=== PATIENT | female | born 1940 | race Caucasian/White ===

== ENCOUNTER 2016-12-08 13:30 | Emergency (ER) | payer MEDICARE ==
[2016-12-08 13:43] VITALS: BP 124/72
--- NOTE | 2016-12-08 14:28 | UC ---
Skin Complaint HPI - HPI Summary HPI Summary: 2 days ago pt's daughter noticed a lump on pts upper back. No pain, itching, or other discomfort. No previous injuries or procedures in that area. - History of Current Complaint Chief Complaint: UCSkin Time Seen by Provider: 12/08/16 14:11 Stated Complaint: LUMP ON BACK Hx Obtained From: Patient ?: No Onset/Duration: Gradual Onset Timing: Constant Current Severity: Mild Location: Discrete Character: Raised Aggravating: Nothing Alleviating: Nothing Associated Signs & Symptoms: Negative: Fever, Chills, Cough, Rash, Drainage, Bruising, Tenderness, Red Streaks - Allergy/Home Medications Allergies/Adverse Reactions: Allergies Allergy/AdvReac Type Severity Reaction Status Date / Time No Known Allergies Allergy Verified 12/08/16 13:44 Home Medications: Home Medications Apixaban* [Eliquis*] 12/08/16 [History] Atorvastatin* [Lipitor 10 MG*] 12/08/16 [History Confirmed 12/08/16] Metoprolol Succinate [Toprol Xl] 12/08/16 [History] Review of Systems Constitutional: Negative Skin: Other - lump on back Eyes: Negative ENT: Negative Respiratory: Negative Cardiovascular: Negative Gastrointestinal: Negative Genitourinary: Negative Motor: Negative Neurovascular: Negative Musculoskeletal: Negative Neurological: Negative Psychological: Negative All Other Systems Reviewed And Are Negative: Yes PMH/Surg Hx/FS Hx/Imm Hx - Surgical History Surgical History: None - Family History Known Family History: Negative: Blood Disorder - Social History Occupation: Retired Lives: With Family Alcohol Use: Occasionally Substance Use Type: None Smoking Status (MU): Never Smoked Tobacco Physical Exam Triage Information Reviewed: Yes Appearance: Well-Appearing, No Pain Distress, Well-Nourished Vital Signs: Initial Vital Signs Temp 98.2 F 12/08/16 13:40 Pulse 62 12/08/16 13:40 Resp 12 12/08/16 13:40 BP 124/72 12/08/16 13:40 Pulse Ox 99 12/08/16 13:40 Vital Signs Reviewed: Yes Eye Exam: Normal Eyes: Positive: Conjunctiva Clear ENT Exam: Normal ENT: Positive: Normal ENT inspection, Hearing grossly normal, Pharynx normal, TMs normal Dental Exam: Normal Neck exam: Normal Neck: Positive: Supple, Nontender, No Lymphadenopathy Respiratory Exam: Normal Respiratory: Positive: Chest non-tender, Lungs clear, Normal breath sounds, No respiratory distress, No accessory muscle use Cardiovascular Exam: Normal Cardiovascular: Positive: RRR, No Murmur Musculoskeletal Exam: Normal Musculoskeletal: Positive: Strength Intact, ROM Intact Neurological Exam: Normal Neurological: Positive: Alert Psychological Exam: Normal Skin Exam: Other - 3-4cm round soft, fixed lump on upper back. No erythema or drainage noted. Course/Dx - Diagnoses Provider Diagnoses: lipoma on back Discharge - Discharge Plan Condition: Stable Disposition: HOME Patient Education Materials: Lipoma (ED) Referrals: Scar Esposito MD [Primary Care Provider] -
== END 2016-12-08 14:26 | disposition home or self-care (01) ==
LOC: UCEAST 13:30
DX: D17.1 Benign lipomatous neoplasm of skin and subcutaneous tissue of trunk (principal)
CPT/HCPCS: 99211; G0463

== ENCOUNTER 2017-01-28 14:08 | Emergency (ER) | payer MEDICARE ==
[2017-01-28 14:20] VITALS: BP 110/68
--- NOTE | 2017-01-28 15:38 | RAD ---
Indication: Left ankle pain and swelling. 3 views of left ankle demonstrates no fracture. No other bone or joint abnormality is identified. IMPRESSION: Unremarkable left ankle.
--- NOTE | 2017-01-28 16:03 | UC ---
Esperanza Orr SooYoung, scribed for David Becker MD on 01/28/17 at 1511 . Lower Extremity/Ankle HPI - HPI Summary HPI Summary: A 76 y/o F presenting to [facility] with intermittent, acute, pinpoint L interior ankle pain onset for the past 6 months. Pain seems worse at night, and when lying down. Pt initially thought it was from her shoes, but that doesn't appear to be the issue. She is able to ambulate without pain. - History of Current Complaint Chief Complaint: UCLowerExtremity Stated Complaint: LUMP ON ANKLE Time Seen by Provider: 01/28/17 15:03 Hx Obtained From: Patient Onset/Duration: Lasting Weeks - intermittent for 6 months, Still Present Severity Currently: None Pain Intensity: 0 Pain Scale Used: 0-10 Numeric Aggravating Factor(s): Other - nighttime, lying down/elevated Able to Bear Weight: Yes - Allergies/Home Medications Allergies/Adverse Reactions: Allergies Allergy/AdvReac Type Severity Reaction Status Date / Time No Known Allergies Allergy Verified 12/08/16 13:44 PMH/Surg Hx/FS Hx/Imm Hx Previously Healthy: No Cardiovascular History: Atrial Fibrillation Respiratory History: Other Other Respiratory History: Denies - Surgical History Surgical History: Yes Surgery Procedure, Year, and Place: hysterectomy. foot sx - Family History Known Family History: Negative: Blood Disorder - Social History Occupation: Retired Lives: With Family Alcohol Use: Occasionally Substance Use Type: None Smoking Status (MU): Never Smoked Tobacco Review of Systems Constitutional: Negative Skin: Negative Eyes: Negative ENT: Negative Respiratory: Negative Cardiovascular: Negative Gastrointestinal: Negative Genitourinary: Negative Motor: Negative Neurovascular: Negative Musculoskeletal: Arthralgia - L ankle Neurological: Negative Psychological: Negative All Other Systems Reviewed And Are Negative: Yes Physical Exam Triage Information Reviewed: Yes Appearance: Well-Appearing, No Pain Distress Vital Signs: Initial Vital Signs Temp 98.4 F 01/28/17 14:16 Pulse 77 01/28/17 14:16 Resp 16 01/28/17 14:16 BP 110/68 01/28/17 14:16 Pulse Ox 97 01/28/17 14:16 Vital Signs Reviewed: Yes Eyes: Positive: Other: - EOMI/BK ENT: Positive: Hearing grossly normal Neck: Positive: Supple, Nontender Musculoskeletal: Positive: Other: - Exam limited to LLE. L ankle immediately posterior and inferior to medial malleolus, there is a soft swelling that is tender to palpation, not firm to palpation. Good capillary refill. Ankle has FROM. Neurological Exam: Normal Neurological: Positive: Alert Psychological Exam: Normal Psychological: Positive: Age Appropriate Behavior Skin Exam: Normal - warm, dry, color reflects adequate perfusion Diagnostics - Radiology ANKLE XR Xray Interpretation: No Acute Changes - IMPRESSION: Unremarkable L ankle Radiology Interpretation Completed By: Radiologist Re-Evaluation - Re-Evaluation 1 Re-Evaluation Time: 15:58 Change: Unchanged Comment: Discussing XR results with pt. Lower Extremity Course/Dx - Course Course Of Treatment: Pt medications reviewed this visit. Vitals reviewed. BP is WNL. DISCUSSED RESULTS WITH PATIENT. SRIRAM WRAP PLACED. THE PLAN IS TO F/U WITH [facility] FOR FURTHER EVALUATION/TREATMENT/PT. - Differential Dx/Diagnosis Provider Diagnoses: LEFT ANKLE SPRAIN Discharge - Discharge Plan Condition: Stable Disposition: HOME Patient Education Materials: Ankle Sprain (ED) Referrals: Scar Esposito MD [Primary Care Provider] - [facility] [Outside] Additional Instructions: Return to Urgent Care if you have any new or worsening symptoms FOLLOW UP WITH SP[facility]TS MED[facility]INE. WEAR THE SRIRAM WRAP IF IT HELPFUL. DO THE RANGE OF MOTION EXERCISES DISCUSSED. GET RECHECKED FOR ANY WORSENING OF YOUR CONDITION OR QUESTIONS OR CONCERNS. The documentation as recorded by the Esperanza bates SooYoung accurately reflects the service I personally performed and the decisions made by me, David Becker MD.
== END 2017-01-28 16:10 | disposition home or self-care (01) ==
LOC: UCEAST 14:08
DX: S93.402A Sprain of unspecified ligament of left ankle, initial encounter (principal); X58.XXXA Exposure to other specified factors, initial encounter; Y93.9 Activity, unspecified; Y92.9 Unspecified place or not applicable; I48.91 Unspecified atrial fibrillation
CPT/HCPCS: 99212; G0463